=== PATIENT | female | born 1955 | race Caucasian/White ===

== ENCOUNTER 2020-05-26 09:01 | Outpatient (REF) | payer BC, SELFPAY ==
[2020-05-26 11:23] LABS: Hematocrit 40.4 % (37-47); Mean Corpuscular HGB Conc 32.2 g/dl (31.0-35.0); Mean Corpuscular Hemoglobin 30.9 pg (27.0-33.0); Mean Platelet Volume 12.1 fL (9.4-12.3); Platelet Count 152 X10*3/uL (160-400); Red Blood Count 4.21 X10*6/uL (4.20-5.50); Red Cell Distribution Width 12.5 % (11.0-16.0)
[2020-05-26 11:29] LABS: Glucose Urine UA NEG (NEG); Leukocyte Esterase Urine NEG (NEG); Nitrite Urine NEG (NEG); PH 5.5 (5.0-8.0); Specific Gravity - Urine >= 1.030 (1.005-1.025); Urine Blood 3+ (NEG); Urine Ketones NEG (NEG); Urine Protein TRACE MG/DL (NEG-TRACE)
[2020-05-26 11:33] LABS: Appearance Urine CLOUDY; Color Urine YELLOW
[2020-05-26 11:41] LABS: Alanine Aminotransferase 18 U/L (0-31); Alkaline Phosphatase 72 U/L (39-117); Anion Gap 12 (12-20); Aspartate Amino Transferase 21 U/L (5-31); Bilirubin Total 0.3 mg/dL (0.0-1.0); Blood Urea Nitrogen 16 mg/dL (9-16); Calcium 8.8 mg/dL (8.4-10.2); Carbon Dioxide 25 mmol/L (22-29); Chloride 107 mmol/L (96-108); Cholesterol 129 mg/dL; Estimated Glomerular Filt Rate > 60; Glucose Fasting 110 mg/dL (60-99); HDL Cholesterol 36 mg/dL; LDL Cholesterol Calculated 60 mg/dl; Sodium 140 mmol/L (135-145); Triglycerides 168 mg/dL
[2020-05-26 12:02] LABS: Thyroid Stimulating Hormone 2.62 uIU/mL (0.32-4.0)
[2020-05-26 12:03] LABS: Bacteria Urine 1+ /LPF; Squamous Epithelial Cell Urine 2+ /LPF; WBC Urine 0-2 /HPF (0-4)
[2020-05-26 12:12] LABS: Digoxin 0.4 ng/mL (0.8-2.0)
[2020-05-26 14:48] LABS: Amorphous Sediment Urine 3+ /LPF; Calcium Oxalate Crystals Urine 2+ /LPF
== END 2020-05-26 09:02 | disposition home or self-care (01) ==
LOC: HO.HMGCLDS 09:01
PROVIDERS: PCP Internal Medicine; Visit Provider Internal Medicine
DX: I50.9 Heart failure, unspecified (principal); F32.9 Major depressive disorder, single episode, unspecified; I21.9 Acute myocardial infarction, unspecified; J44.9 Chronic obstructive pulmonary disease, unspecified
CPT/HCPCS: 36415; 80053; 80061; 80162; 81001; 84443; 85027

== ENCOUNTER 2020-07-28 14:58 | Outpatient (REF) | payer BC, SELFPAY ==
[2020-07-28 16:33] LABS: Glucose Urine UA NEG (NEG); Leukocyte Esterase Urine NEG (NEG); Nitrite Urine NEG (NEG); Specific Gravity - Urine 1.015 (1.005-1.025); Urine Blood 2+ (NEG); Urine Ketones NEG (NEG); Urine Protein NEG (NEG-TRACE)
[2020-07-28 16:43] LABS: Appearance Urine CLEAR; Color Urine YELLOW
[2020-07-28 16:54] LABS: WBC Urine 0 /HPF (0-4)
== END 2020-07-28 14:59 | disposition home or self-care (01) ==
LOC: HO.HMGCLDS 14:58
PROVIDERS: PCP Internal Medicine; Visit Provider Internal Medicine
DX: R31.9 Hematuria, unspecified (principal)
CPT/HCPCS: 81001

== ENCOUNTER 2020-09-30 09:12 | Outpatient (REF) | payer BC, SELFPAY ==
[2020-09-30 12:10] LABS: Anion Gap 17 (12-20); Blood Urea Nitrogen 13 mg/dL (9-16); Calcium 8.6 mg/dL (8.4-10.2); Carbon Dioxide 20 mmol/L (22-29); Chloride 110 mmol/L (96-108); Cholesterol 129 mg/dL; Estimated Glomerular Filt Rate > 60; Glucose Fasting 113 mg/dL (60-99); HDL Cholesterol 41 mg/dL; LDL Cholesterol Calculated 59 mg/dl; Potassium 4.5 mmol/L (3.3-5.1); Sodium 142 mmol/L (135-145); Triglycerides 149 mg/dL
[2020-09-30 12:21] LABS: Digoxin < 0.3 ng/mL (0.8-2.0)
== END 2020-09-30 09:13 | disposition home or self-care (01) ==
LOC: HO.HMGCLDS 09:12
PROVIDERS: PCP Internal Medicine; Visit Provider Internal Medicine Cardiovascular Disease
DX: I25.10 Atherosclerotic heart disease of native coronary artery without angina pectoris (principal); I48.91 Unspecified atrial fibrillation
CPT/HCPCS: 36415; 80048; 80061; 80162

== ENCOUNTER 2022-02-18 09:07 | Outpatient (REF) | payer MEDICARE, OTHER, SELFPAY ==
[2022-02-18 11:35] LABS: Hematocrit 36.8 % (37.0-47.0); Hemoglobin 11.8 g/dl (12.0-16.0); Mean Corpuscular HGB Conc 32.1 g/dl (31.0-35.0); Mean Corpuscular Volume 93.6 fL (80.0-98.0); Mean Platelet Volume 11.9 fL (9.4-12.3); Platelet Count 157 X10*3/uL (160-400); Red Blood Count 3.93 X10*6/uL (4.20-5.50); Red Cell Distribution Width 13.6 % (11.0-16.0); White Blood Count 8.5 X10*3/uL (4.8-10.8)
[2022-02-18 11:37] LABS: Estimated Average Glucose 123 mg/dL; Hemoglobin A1C 135.1505 umol/L; Hemoglobin A1c % 5.9 %
[2022-02-18 11:46] LABS: Anion Gap 14 (12-20); Blood Urea Nitrogen 9 mg/dL (9-16); Calcium 9.1 mg/dL (8.4-10.2); Carbon Dioxide 24 mmol/L (22-29); Chloride 108 mmol/L (96-108); Estimated Glomerular Filt Rate > 60; Glucose Random 117 mg/dL (60-115); Potassium 4.3 mmol/L (3.3-5.1); Sodium 142 mmol/L (135-145)
[2022-02-18 11:53] LABS: Alanine Aminotransferase 13 U/L (0-31); Alkaline Phosphatase 86 U/L (39-117); Anion Gap 16 (12-20); Aspartate Amino Transferase 16 U/L (5-31); Bilirubin Total 0.2 mg/dL (0.0-1.0); Blood Urea Nitrogen 9 mg/dL (9-16); Calcium 9.2 mg/dL (8.4-10.2); Carbon Dioxide 22 mmol/L (22-29); Chloride 108 mmol/L (96-108); Cholesterol 104 mg/dL; Estimated Glomerular Filt Rate > 60; Glucose Fasting 119 mg/dL (60-99); HDL Cholesterol 34 mg/dL; LDL Cholesterol Calculated 50 mg/dl; Potassium 4.2 mmol/L (3.3-5.1); Sodium 142 mmol/L (135-145); Total Protein 7.2 g/dL (6.5-8.0); Triglycerides 101 mg/dL
[2022-02-18 12:49] LABS: Digoxin 0.9 ng/mL (0.8-2.0)
== END 2022-02-18 09:08 | disposition home or self-care (01) ==
LOC: HO.HMGCLDS 09:07
PROVIDERS: PCP Internal Medicine; Visit Provider Nurse Practitioner Acute Care
DX: E78.5 Hyperlipidemia, unspecified (principal); I25.5 Ischemic cardiomyopathy; R73.9 Hyperglycemia, unspecified; I48.0 Paroxysmal atrial fibrillation; Z79.899 Other long term (current) drug therapy
CPT/HCPCS: 36415; 80048; 80053; 80061; 80162; 83036; 85027

== ENCOUNTER 2022-03-10 10:21 | Outpatient (REF) | payer MEDICARE, OTHER, SELFPAY ==
[2022-03-10 14:33] LABS: Iron 55 mcg/dL (30-160); Percent Iron Saturation 16 % (15-50); Total Iron Binding Capacity 335 mcg/dL (228-428); Unsaturated Iron Binding 280 ug/dL
[2022-03-10 14:49] LABS: Vitamin D 25-OH Total 40.7 ng/mL (>30)
[2022-03-10 15:24] LABS: Folate 18.7 ng/mL (> or = 4.0); Vitamin B12 266 pg/mL (200-900)
== END 2022-03-10 10:22 | disposition home or self-care (01) ==
LOC: HO.HMGCLDS 10:21
PROVIDERS: PCP Internal Medicine; Visit Provider Internal Medicine
DX: D64.9 Anemia, unspecified (principal); E55.9 Vitamin D deficiency, unspecified
CPT/HCPCS: 36415; 82306; 82607; 82746; 83540

== ENCOUNTER 2022-06-23 11:24 | Outpatient (REF) | payer OTHER, MEDICARE, SELFPAY ==
--- NOTE | ~2022-06-23 | XR_ITS ---
EXAMINATION: XR CHEST CLINICAL INFORMATION: Shortness of breath COMPARISON: July 30, 2019 and November 13, 2018 TECHNIQUE: 2 views of the chest were obtained. FINDINGS: AICD in place. Status post median sternotomy. No acute parenchymal disease, pneumothorax, or significant pleural effusion identified. There is chronic pleural-parenchymal scarring seen within the left lung. There is bilateral apical pleural thickening. XR/XR chest 2V IMPRESSION: No acute disease.
[2022-06-23 15:09] LABS: Influenza A PCR NEGATIVE (Negative); Influenza B PCR NEGATIVE (Negative); Resp Syncy Virus RNA Qual PCR NEGATIVE (Negative); SARS COV2 PCR INHOUSE NEGATIVE (Negative)
== END 2022-06-23 11:25 | disposition home or self-care (01) ==
LOC: HO.HMGCX 11:24
PROVIDERS: PCP Internal Medicine; Visit Provider Nurse Practitioner Family
DX: Z20.822 Contact with and (suspected) exposure to COVID-19 (principal); R06.02 Shortness of breath; R09.89 Other specified symptoms and signs involving the circulatory and respiratory systems
CPT/HCPCS: 0241U; 71046

== ENCOUNTER 2022-10-12 08:37 | Outpatient (REF) | payer OTHER, MEDICARE, SELFPAY ==
[2022-10-12 12:18] LABS: Cholesterol 125 mg/dL; HDL Cholesterol 37 mg/dL; LDL Cholesterol Calculated 55 mg/dl; Triglycerides 167 mg/dL
== END 2022-10-12 08:38 | disposition home or self-care (01) ==
LOC: HO.HMGCLDS 08:37
PROVIDERS: PCP Internal Medicine; Visit Provider Nurse Practitioner Acute Care
DX: I25.10 Atherosclerotic heart disease of native coronary artery without angina pectoris (principal)
CPT/HCPCS: 36415; 80061

== ENCOUNTER 2023-03-15 10:14 | Outpatient (AMB) | payer MEDICARE, SELFPAY ==
[2023-03-15 10:24] VITALS: BP 90/56; PULSE 69; O2SAT 96; BMI 24.3
--- NOTE | 2023-03-15 10:24 | MHC.PC.OV ---
Vital Signs 03/15/23 10:24 Height 5 ft 5 in Weight 146 lb BMI 24.3 BP 90/56 L Blood Pressure Location Lt brachial Position Sitting Pulse 69 Pulse Source Pulse Oximeter Pulse Oximetry (%) 96 Oxygen Delivery Method Room Air Intake Visit Reasons: Annual PE Intake Note: Pt is here today for PE. Allergies heparin [HEPARIN] Allergy (Unknown, Verified 03/15/23 10:43) UNKNOWN REACTION(WAS AFTER CABG SURGERY) Penicillins [PENICILLINS] Allergy (Unknown, Verified 03/15/23 10:43) REACTION UNKNOWN Medication List - Last Reconciled 03/15/23 by Annika Peter MD apixaban 5 mg PO BID carvedilol 25 mg PO BID citalopram 30 mg (1.5 x 20 mg) PO QAM digoxin 250 mcg PO BEDTIME flu vac qs 2019(4 yr up)CD(PF) mL IM furosemide 10 mg PO DAILY rosuvastatin 40 mg PO DAILY sacubitril-valsartan 49-51 mg 1 tab PO BID triamcinolone acetonide 0.1% 1 appl topical DAILY Tobacco use date assessed: 03/15/23 Fall risk assessment: No Falls in past year Last assessed Fall Risk: 03/15/23 Dental Screening Dental Screen Date: 03/15/23 Did you have a dental visit in the last 12 months?: No Did you have a dental problem in the last 6 months where you did not have access to dental care?: Yes Was dental information given to patient?: Yes HPI Annual PE HPI Details Pt presents for PE. PFSH Medical History (Updated 03/15/23 @ 11:13 by Annika Peter MD) Hyperglycemia Dysplastic nevus Hyperlipidemia Hematuria A-fib Colon cancer screening declined Papanicolaou smear declined Mammogram declined COPD (chronic obstructive pulmonary disease) Ischemic cardiomyopathy Depression Pacemaker Myocardial infarct Surgical History S/P ICD (internal cardiac defibrillator) procedure Hx of CABG Family History Father History of heart attack Mother No problems noted. Maternal Grandmother Colon cancer Social History Housing: House Alcohol intake: never Patient Tobacco Use Status: Current everyday Tobacco user Tobacco use type: Cigarette Cigarettes Per Day: 10 e-Cigarette/Vaping Use: Never Used Current occupational status: employed Cognitive needs: No Hearing needs: No Vision needs: Yes Questionnaire PHQ-9 Over the last 2 weeks, how often have you been bothered by any of the following problems? 1. Little interest or pleasure in doing things: more than half the days 19662 - PHQ-9 Billing: Patient declined-do not bill Source: Developed by Drs. Yazan Ascencio, Williams Austin and colleagues, with an educational dion from [employer]. Thrive Questionnaire Date Thrive assessed: 03/15/23 What is your living situation today?: I choose not to answer this question Within the past 12 months, did the food you bought not last and you didn't have the money to get more?: I choose not to answer this question Within the past 12 months, did you worry whether your food would run out before you got money to buy more?: I choose not to answer this question Do you have trouble paying for medicines?: I choose not to answer this question Do you have trouble getting transportation to medical appointments?: I choose not to answer this question Do you have trouble paying your heating and electricity bill?: I choose not to answer this question Do you have trouble taking care of your child, family member or friend?: I choose not to answer this question Do you have trouble with day-to-day activities such as bathing, preparing meals, shopping, managing finances, etc.?: I choose not to answer this question Are you currently unemployed and looking for a job?: I choose not to answer this question Are you interested in more education?: I choose not to answer this question KARLY-7 AMB Questionnaire KARLY-7 Date KARLY - 7 assessed: 03/15/23 Source: Developed by Drs. Yazan Ascencio, Williams Austin and colleagues, with an educational dion from [employer]. KARLY-7 Assessment Billing KARLY-7 Assessment Tool: pt declined-do not bill Review of Systems Const All systems reviewed & are unremarkable except as noted in HPI and below Reports no additional complaints Eyes Reports no additional complaints ENT Reports no additional complaints Card Reports no additional complaints Resp Reports no additional complaints GI Reports no additional complaints Reports no additional complaints Physical exam (Primary Care) Vital Signs: Last Vital Signs Pulse 69 03/15/23 10:24 BP 90/56 L 03/15/23 10:24 Pulse Ox 96 03/15/23 10:24 Oxygen Delivery Method Room Air 03/15/23 10:24 BMI result Body Mass Index 24.3 Tobacco/Smoking Status: Tobacco use Status Tobacco use date assessed 03/15/23 03/15/23 10:49 Patient Tobacco Use Status Current everyday Tobacco 03/15/23 10:24 Tobacco use type Cigarette 03/15/23 10:24 e-Cigarette/Vaping Use Never Used 03/15/23 10:24 Thrive Assessment: Date of Thrive Assessment Date Thrive assessed 03/15/23 03/15/23 10:49 Const General: no acute distress HENMT Head: Yes normal to inspection Ears: hearing grossly normal bilaterally Face and sinus: Yes normal facial exam Throat: Yes posterior oropharynx normal Neck Neck: Yes no lymphadenopathy and Yes supple Resp Effort & Inspection: normal respiratory effort Auscultation: diminished lung sounds Cardio Rhythm: regular rhythm Heart sounds: S1 normal heart sound present and S2 normal heart sound present GI Inspection: Yes normal to inspection Palpation (GI): Soft to palpation Percussion: Yes normal to percussion Auscultation: normal bowel sounds Assessment and Plan Assessment & Plan (1) Vitamin D deficiency: Code(s): E55.9 - Vitamin D deficiency, unspecified Plan: Continue vitamin-D supplement (2) Anemia: Code(s): D64.9 - Anemia, unspecified (3) Hyperglycemia: Code(s): R73.9 - Hyperglycemia, unspecified Plan: Patient have a fasting labs including A1c, ADA diet regular physical activity discussed with the patient (4) Ischemic cardiomyopathy: Comment: s/p CABG, ejection fraction 20-25%, Echo 03/25, f/u with [facility]iology , s/p ICD, Code(s): I25.5 - Ischemic cardiomyopathy Plan: Continue current medications and follow-up with Cardiology (5) Hyperlipidemia: Code(s): E78.5 - Hyperlipidemia, unspecified Plan: Continue statin (6) A-fib: Code(s): I48.91 - Unspecified atrial fibrillation Plan: Continue current medication Eliquis (7) Tobacco dependence: Comment: 1/2 ppd, pt delined lung ca screening 03/26 Code(s): F17.200 - Nicotine dependence, unspecified, uncomplicated Plan: Tobacco quitting discussed with the patient (8) Papanicolaou smear declined: Code(s): Z53.20 - Procedure and treatment not carried out because of patient's decision for unspecified reasons (9) Mammogram declined: Comment: 2022 Code(s): Z53.20 - Procedure and treatment not carried out because of patient's decision for unspecified reasons Orders: Orders Complete Blood Count Auto Diff Today D64.9 - Anemia, unspecified, E55.9 - Vitamin D deficiency, unspecified, E78.5 - Hyperlipidemia, unspecified, I25.5 - Ischemic cardiomyopathy, I48.91 - Unspecified atrial fibrillation, R73.9 - Hyperglycemia, unspecified Digoxin Today D64.9 - Anemia, unspecified, E55.9 - Vitamin D deficiency, unspecified, E78.5 - Hyperlipidemia, unspecified, I25.5 - Ischemic cardiomyopathy, I48.91 - Unspecified atrial fibrillation, R73.9 - Hyperglycemia, unspecified Comprehensive [place]. Panel Fast Today D64.9 - Anemia, unspecified, E55.9 - Vitamin D deficiency, unspecified, E78.5 - Hyperlipidemia, unspecified, I25.5 - Ischemic cardiomyopathy, I48.91 - Unspecified atrial fibrillation, R73.9 - Hyperglycemia, unspecified Lipid Panel Today D64.9 - Anemia, unspecified, E55.9 - Vitamin D deficiency, unspecified, E78.5 - Hyperlipidemia, unspecified, I25.5 - Ischemic cardiomyopathy, I48.91 - Unspecified atrial fibrillation, R73.9 - Hyperglycemia, unspecified Hemoglobin A1c Today D64.9 - Anemia, unspecified, E55.9 - Vitamin D deficiency, unspecified, E78.5 - Hyperlipidemia, unspecified, I25.5 - Ischemic cardiomyopathy, I48.91 - Unspecified atrial fibrillation, R73.9 - Hyperglycemia, unspecified TSH reflex Free T4 Today D64.9 - Anemia, unspecified, E55.9 - Vitamin D deficiency, unspecified, E78.5 - Hyperlipidemia, unspecified, I25.5 - Ischemic cardiomyopathy, I48.91 - Unspecified atrial fibrillation, R73.9 - Hyperglycemia, unspecified Microalbumin, Random (w Creat) Today D64.9 - Anemia, unspecified, E55.9 - Vitamin D deficiency, unspecified, E78.5 - Hyperlipidemia, unspecified, I25.5 - Ischemic cardiomyopathy, I48.91 - Unspecified atrial fibrillation, R73.9 - Hyperglycemia, unspecified Vitamin D 25-OH Total Today D64.9 - Anemia, unspecified, E55.9 - Vitamin D deficiency, unspecified, E78.5 - Hyperlipidemia, unspecified, I25.5 - Ischemic cardiomyopathy, I48.91 - Unspecified atrial fibrillation, R73.9 - Hyperglycemia, unspecified Medications: Refilled triamcinolone acetonide 0.1% 1 appl topical DAILY 30 grams 0RF Coding Level of Care Code Est Pt Prev Care >65y(00690) Diagnoses Vitamin D deficiency E55.9 Anemia D64.9 Hyperglycemia R73.9 Ischemic cardiomyopathy I25.5 Hyperlipidemia E78.5 A-fib I48.91 Tobacco dependence F17.200 Papanicolaou smear declined Z53.20 Mammogram declined Z53.20
== END 2023-03-15 11:10 | disposition home or self-care (01) ==
PROVIDERS: Visit Provider Internal Medicine
DX: Z00.00 Encounter for general adult medical examination without abnormal findings (principal); E55.9 Vitamin D deficiency, unspecified; I48.91 Unspecified atrial fibrillation; F17.210 Nicotine dependence, cigarettes, uncomplicated; D64.9 Anemia, unspecified; R73.9 Hyperglycemia, unspecified; I25.5 Ischemic cardiomyopathy; E78.5 Hyperlipidemia, unspecified; Z53.20 Procedure and treatment not carried out because of patient's decision for unspecified reasons
CPT/HCPCS: 99397

== ENCOUNTER 2023-04-08 14:14 | Outpatient (REF) | payer MEDICARE, SELFPAY ==
[2023-04-08 16:37] LABS: Digoxin 0.9 ng/mL (0.8-2.0)
== END 2023-04-08 14:15 | disposition home or self-care (01) ==
LOC: HO.HMGCLDS 14:14
PROVIDERS: PCP Internal Medicine; Visit Provider Internal Medicine
DX: Z00.00 Encounter for general adult medical examination without abnormal findings (principal); E55.9 Vitamin D deficiency, unspecified; I25.5 Ischemic cardiomyopathy; E78.5 Hyperlipidemia, unspecified; D64.9 Anemia, unspecified; R73.9 Hyperglycemia, unspecified; I48.91 Unspecified atrial fibrillation; Z79.899 Other long term (current) drug therapy
CPT/HCPCS: 36415; 80053; 80061; 80162; 82043; 82306; 82570; 83036; 83540; 84443; 85025

== ENCOUNTER 2023-04-22 08:24 | Outpatient (AMB) | payer MEDICARE, SELFPAY ==
--- NOTE | 2023-04-22 08:28 | A.OFFPC_ITS ---
Vital Signs 04/22/23 08:29 Height 5 ft 5 in Weight 145 lb BMI 24.1 BP 104/62 Blood Pressure Location Lt brachial Position Sitting Pulse 82 Pulse Source Pulse Oximeter Pulse Oximetry (%) 95 Oxygen Delivery Method Room Air Intake Visit Reasons: Hospital follow up [facility] Intake Note: Pt is here today for Hospital follow up visit. Pt states that she needs a repeat blood test for CBC TSH and BMP. Allergies heparin [HEPARIN] Allergy (Unknown, Verified 04/22/23 08:32) UNKNOWN REACTION(WAS AFTER CABG SURGERY) Penicillins [PENICILLINS] Allergy (Unknown, Verified 04/22/23 08:32) REACTION UNKNOWN Medication List - Last Reconciled 04/22/23 by Annika Peter MD albuterol sulfate 90 mcg/actuation 2 puffs inhalation Q6H PRN apixaban 5 mg PO BID carvedilol 3.125 mg PO BID citalopram 30 mg (1.5 x 20 mg) PO QAM digoxin 250 mcg PO BEDTIME flu vac qs 2019(4 yr up)CD(PF) mL IM fluticasone propionate 44 mcg/actuation (Flovent HFA) 2 puffs inhalation BID furosemide 10 mg PO DAILY rosuvastatin 40 mg PO DAILY sacubitril-valsartan 24-26 mg (Entresto) 1 tab PO BID tiotropium bromide 1.25 mcg/actuation (Spiriva Respimat) 2 puffs inhalation DAILY triamcinolone acetonide 0.1% 1 appl topical DAILY Tobacco use date assessed: 04/22/23 HPI Hospital follow up [facility] HPI Details Pt presents for f/u hospitalization at [facility] for COPD and CHF EXACERBATION. Patient complains of persistent productive cough with green sputum, sinus and chest congestion but denies fever chills shortness of breath. [facility] Medical History Hyperglycemia Dysplastic nevus Hyperlipidemia Hematuria A-fib Colon cancer screening declined Papanicolaou smear declined Mammogram declined COPD (chronic obstructive pulmonary disease) Ischemic cardiomyopathy Depression Pacemaker Myocardial infarct Surgical History S/P ICD (internal cardiac defibrillator) procedure Hx of CABG Family History Father History of heart attack Mother No problems noted. Maternal Grandmother Colon cancer Social History Housing: House Alcohol intake: never Patient Tobacco Use Status: Current everyday Tobacco user Tobacco use type: Cigarette Cigarettes Per Day: 4 e-Cigarette/Vaping Use: Never Used Current occupational status: employed Cognitive needs: No Hearing needs: No Vision needs: Yes Questionnaire Thrive Questionnaire Date Thrive assessed: 03/15/23 KARLY-7 AMB Questionnaire KARLY-7 Date KARLY - 7 assessed: 03/15/23 Source: Developed by Drs. Yazan Ascencio, Kim Mcguire, Williams Alatorre and colleagues, with an educational dion from [email or web address]. Review of Systems Const All systems reviewed & are unremarkable except as noted in HPI and below Reports no additional complaints Eyes Reports no additional complaints ENT Reports no additional complaints Card Reports no additional complaints Resp Reports no additional complaints GI Reports no additional complaints Physical exam (Primary Care) Vital Signs: Last Vital Signs Pulse 82 04/22/23 08:29 BP 104/62 04/22/23 08:29 Pulse Ox 95 04/22/23 08:29 Oxygen Delivery Method Room Air 04/22/23 08:29 BMI result Body Mass Index 24.1 Tobacco/Smoking Status: Tobacco use Status Tobacco use date assessed 04/22/23 04/22/23 08:37 Patient Tobacco Use Status Current everyday Tobacco 04/22/23 08:30 Tobacco use type Cigarette 04/22/23 08:30 e-Cigarette/Vaping Use Never Used 04/22/23 08:30 Thrive Assessment: Date of Thrive Assessment Date Thrive assessed 03/15/23 04/22/23 08:30 Const General: no acute distress HENMT Head: Yes normal to inspection Ears: TM's normal bilaterally Face and sinus: Yes sinus tenderness Throat: Yes posterior oropharynx abnormal and Yes postnasal drainage Eyes General: appearance normal, both eyes and all related structures Neck Neck: Yes no lymphadenopathy and Yes supple Resp Effort & Inspection: normal respiratory effort Auscultation: crackles, wheezes and diminished lung sounds Cardio Rhythm: regular rhythm Heart sounds: S1 normal heart sound present and S2 normal heart sound present GI Inspection: Yes normal to inspection Palpation (GI): Soft to palpation Percussion: Yes normal to percussion Auscultation: normal bowel sounds Office Procedures Nebulizer Treatment Nebulizer Treatment [id number]/MDI RX initial, or Nebulizer Subsequent Treatment Office Meds ipratropium 0.5 mg-albuterol 3 mg (2.5 mg base)/3 mL nebulization soln Performing Provider: Annika Peter MD Performing Location: [facility] Administered by: Ghada Shields RN on 04/22/23 09:00 Dose Route Admin Location Dispensed Lot Number Expiration Date NDC [employer] 3 mL inhalation Rm 3 3 mL [id number] 08/17/23 3716-8925-35 [employer]PHRON HUSSAIN Comments: Pt familiar with use of device. Assessment and Plan Assessment & Plan (1) Ischemic cardiomyopathy: Comment: s/p CABG, ejection fraction 20-25%, Echo 03/25, f/u with [facility] Cardiology , s/p ICD, Code(s): I25.5 - Ischemic cardiomyopathy Plan: Restart regular medications and previous doses including Entresto and carved ilol. Patient has a follow-up appointment with technology officer next week (2) COPD (chronic obstructive pulmonary disease): Comment: severe PFT 2018 Code(s): J44.9 - Chronic obstructive pulmonary disease, unspecified Plan: For COPD exacerbation prednisone taper and doxycycline are prescribed. Trelegy will be started and albuterol nebulizer treatment. Patient will follow-up in 2 weeks Orders: Orders AMB Nebulizer Treatment Today R06.02 - Shortness of breath Medications: New doxycycline hyclate 100 mg PO BID 20 tabs 0RF prednisone 4 tabl qd x 3 days, then 3 tabl qd x 3 days, then 2 tab qd x 3 days, then 1 qd for 3 days 10 mg PO DAILY 30 tabs 0RF sacubitril-valsartan 49-51 mg 1 tab PO BID 180 tabs 0RF nebulizers (AeroEclipse II Nebulizer) As directed 1 ea 0RF albuterol sulfate 0.63 mg (3 mL) inhalation QID PRN 90 mL 3RF shortness of breath or wheezing tyvahejrhtm-wfolcrufm-qjvqaugv 100-62.5-25 mcg (Trelegy Ellipta) 1 inh inhalation DAILY 60 ea 4RF carvedilol must administer with a meal/food 25 mg PO BID 180 tabs 1RF Coding Level of Care Code Est Pt Level 4 (94566) Diagnoses Ischemic cardiomyopathy I25.5 COPD (chronic obstructive pulmonary disease) J44.9 CPT Codes Nebulizer Treatment - Nebulizer Treatment, initial or subsequent: 68146- Nebulizer/MDI RX initial, or Nebulizer Subsequent Treatment ([id number])
[2023-04-22 08:29] VITALS: BP 104/62; PULSE 82; O2SAT 95; BMI 24.1
== END 2023-04-22 09:45 | disposition home or self-care (01) ==
PROVIDERS: PCP Internal Medicine; Visit Provider Internal Medicine
DX: I25.5 Ischemic cardiomyopathy (principal); J44.9 Chronic obstructive pulmonary disease, unspecified; I50.9 Heart failure, unspecified; R06.02 Shortness of breath
CPT/HCPCS: 94640; 99214; J7620

== ENCOUNTER 2023-05-06 09:58 | Outpatient (AMB) | payer MEDICARE, SELFPAY ==
--- NOTE | 2023-05-06 10:09 | A.OFFPC_ITS ---
Vital Signs 05/06/23 10:11 Height 5 ft 5 in Weight 149 lb BMI 24.8 BP 90/58 L Blood Pressure Location Lt brachial Position Sitting Pulse 78 Pulse Source Pulse Oximeter Pulse Oximetry (%) 98 Oxygen Delivery Method Room Air Intake Visit Reasons: 2 week f/u COPD Intake Note: Pt is here today for 2 weeks follow up on COPD. Allergies heparin [HEPARIN] Allergy (Unknown, Verified 05/06/23 10:13) UNKNOWN REACTION(WAS AFTER CABG SURGERY) Penicillins [PENICILLINS] Allergy (Unknown, Verified 05/06/23 10:13) REACTION UNKNOWN Medication List - Last Reconciled 05/06/23 by Annika Peter MD albuterol sulfate 90 mcg/actuation 2 puffs inhalation Q6H PRN albuterol sulfate 0.63 mg (3 mL) inhalation QID PRN apixaban 5 mg PO BID carvedilol 25 mg PO BID citalopram 30 mg (1.5 x 20 mg) PO QAM digoxin 250 mcg PO BEDTIME flu vac qs 2019(4 yr up)CD(PF) mL IM zgeamdypmnl-ofrzijxhq-bvweypxf 100-62.5-25 mcg (Trelegy Ellipta) 1 inh inhalation DAILY furosemide 10 mg PO DAILY nebulizers (AeroEclipse II Nebulizer) As directed rosuvastatin 40 mg PO DAILY sacubitril-valsartan 49-51 mg 1 tab PO BID triamcinolone acetonide 0.1% 1 appl topical DAILY Tobacco use date assessed: 04/22/23 HPI 2 week f/u COPD HPI Details Patient presents complaining of the metallic taste in her mouth after finishing the course of doxycycline. Patient denies odynophagia dysphagia fever chills cough or chest pains. PFSH Medical History Hyperglycemia Dysplastic nevus Hyperlipidemia Hematuria A-fib Colon cancer screening declined Papanicolaou smear declined Mammogram declined COPD (chronic obstructive pulmonary disease) Ischemic cardiomyopathy Depression Pacemaker Myocardial infarct Surgical History S/P ICD (internal cardiac defibrillator) procedure Hx of CABG Family History Father History of heart attack Mother No problems noted. Maternal Grandmother Colon cancer Social History Housing: House Alcohol intake: never Patient Tobacco Use Status: Current everyday Tobacco user Tobacco use type: Cigarette Cigarettes Per Day: 4 e-Cigarette/Vaping Use: Never Used Current occupational status: employed Cognitive needs: No Hearing needs: No Vision needs: Yes Questionnaire Thrive Questionnaire Date Thrive assessed: 03/15/23 KARLY-7 AMB Questionnaire KARLY-7 Date KARLY - 7 assessed: 03/15/23 Source: Developed by Drs. Yazan Ascencio, Kim Mcguire, Williams Alatorre and colleagues, with an educational dion from [employer]. Review of Systems Const All systems reviewed & are unremarkable except as noted in HPI and below Reports no additional complaints Eyes Reports no additional complaints ENT Reports no additional complaints Card Reports no additional complaints Resp Reports no additional complaints GI Reports no additional complaints Reports no additional complaints Physical exam (Primary Care) Vital Signs: Last Vital Signs Pulse 78 05/06/23 10:11 BP 90/58 L 05/06/23 10:11 Pulse Ox 98 05/06/23 10:11 Oxygen Delivery Method Room Air 05/06/23 10:11 BMI result Body Mass Index 24.8 Tobacco/Smoking Status: Tobacco use Status Tobacco use date assessed 04/22/23 05/06/23 10:15 Patient Tobacco Use Status Current everyday Tobacco 05/06/23 10:15 Tobacco use type Cigarette 05/06/23 10:15 e-Cigarette/Vaping Use Never Used 05/06/23 10:15 Thrive Assessment: Date of Thrive Assessment Date Thrive assessed 03/15/23 05/06/23 10:15 Const General: no acute distress HENMT Head: Yes normal to inspection Ears: hearing grossly normal bilaterally Face and sinus: Yes normal facial exam Mouth: Normal oral and palatal mucosa present Throat: Yes posterior oropharynx normal Eyes General: appearance normal, both eyes and all related structures Resp Effort & Inspection: normal respiratory effort Auscultation: diminished lung sounds Cardio Rhythm: regular rhythm Heart sounds: S1 normal heart sound present and S2 normal heart sound present Assessment and Plan Assessment & Plan (1) Hyperglycemia: Code(s): R73.9 - Hyperglycemia, unspecified Plan: ADA diet increase physical activity discussed with the patient. Return in 3 months with a fasting blood work including A1c (2) Ischemic cardiomyopathy: Comment: s/p CABG, ejection fraction 20-25%, Echo 03/25, f/u with [facility] Cardiology , s/p ICD, Code(s): I25.5 - Ischemic cardiomyopathy Plan: Continue current medications and follow-up with Cardiology (3) COPD (chronic obstructive pulmonary disease): Comment: severe PFT 2018 Code(s): J44.9 - Chronic obstructive pulmonary disease, unspecified Plan: Continue Trelegy and tobacco quitting Orders: Orders Hemoglobin A1c 3 Months I25.5 - Ischemic cardiomyopathy, R73.9 - Hyperglycemia, unspecified Comprehensive [place]. Panel Fast 3 Months I25.5 - Ischemic cardiomyopathy, R73.9 - Hyperglycemia, unspecified Lipid Panel 3 Months I25.5 - Ischemic cardiomyopathy, R73.9 - Hyperglycemia, unspecified Microalbumin, Random (w Creat) 3 Months I25.5 - Ischemic cardiomyopathy, R73.9 - Hyperglycemia, unspecified Coding Level of Care Code Est Pt Level 3 (59243) Diagnoses Hyperglycemia R73.9 Ischemic cardiomyopathy I25.5 COPD (chronic obstructive pulmonary disease) J44.9
[2023-05-06 10:11] VITALS: BP 90/58; PULSE 78; O2SAT 98; BMI 24.8
== END 2023-05-06 10:44 | disposition home or self-care (01) ==
PROVIDERS: PCP Internal Medicine; Visit Provider Internal Medicine
DX: R73.9 Hyperglycemia, unspecified (principal); I25.5 Ischemic cardiomyopathy; J44.9 Chronic obstructive pulmonary disease, unspecified
CPT/HCPCS: 99213

== ENCOUNTER 2023-08-18 11:13 | Outpatient (AMB) | payer MEDICARE, SELFPAY ==
--- NOTE | 2023-08-18 11:16 | MHC.PC.OV ---
Vital Signs 08/18/23 11:17 Height 5 ft 5 in Weight 148 lb BMI 24.6 BP 118/66 Blood Pressure Location Lt brachial Position Sitting Pulse 81 Pulse Source Pulse Oximeter Pulse Oximetry (%) 96 Oxygen Delivery Method Room Air Intake Visit Reasons: 3 month follow up Intake Note: Pt is here today for 3 months follow up visit. Allergies heparin [HEPARIN] Allergy (Unknown, Verified 08/18/23 11:18) UNKNOWN REACTION(WAS AFTER CABG SURGERY) Penicillins [PENICILLINS] Allergy (Unknown, Verified 08/18/23 11:18) REACTION UNKNOWN Medication List - Last Reconciled 08/18/23 by Annika Peter MD albuterol sulfate 90 mcg/actuation 2 puffs inhalation Q6H PRN albuterol sulfate 0.63 mg (3 mL) inhalation QID PRN apixaban 5 mg PO BID carvedilol 25 mg PO BID citalopram 30 mg (1.5 x 20 mg) PO QAM digoxin 250 mcg PO BEDTIME flu vac qs 2019(4 yr up)CD(PF) mL IM ukvtnfslgit-ajvuguwmw-fhtdamqc 100-62.5-25 mcg (Trelegy Ellipta) 1 inh inhalation DAILY furosemide 10 mg PO DAILY nebulizers (AeroEclipse II Nebulizer) As directed rosuvastatin 40 mg PO DAILY sacubitril-valsartan 49-51 mg 1 tab PO BID triamcinolone acetonide 0.1% 1 appl topical DAILY Tobacco use date assessed: 08/18/23 Fall risk assessment: No Falls in past year Last assessed Fall Risk: 08/18/23 Dental Screening Dental Screen Date: 08/18/23 Did you have a dental visit in the last 12 months?: Yes Did you have a dental problem in the last 6 months where you did not have access to dental care?: No Was dental information given to patient?: Patient has dentist HPI 3 month follow up HPI Details Patient presents for the follow-up of ischemic cardiomyopathy, paroxysmal AFib, COPD, hyperlipidemia, stable on medications. She follows up with [facility] for periodic echocardiogram and ICD check. Patient continues to smoke 8 cigarettes a day and is not planning on quitting. [facility] Medical History Hyperglycemia Dysplastic nevus Hyperlipidemia Hematuria A-fib Colon cancer screening declined Papanicolaou smear declined Mammogram declined COPD (chronic obstructive pulmonary disease) Ischemic cardiomyopathy Depression Pacemaker Myocardial infarct Surgical History S/P ICD (internal cardiac defibrillator) procedure Hx of CABG Family History Father History of heart attack Mother No problems noted. Maternal Grandmother Colon cancer Social History Housing: House Alcohol intake: never Patient Tobacco Use Status: Current everyday Tobacco user Tobacco use type: Cigarette Cigarettes Per Day: 4 e-Cigarette/Vaping Use: Never Used Current occupational status: employed Cognitive needs: No Hearing needs: No Vision needs: Yes Questionnaire Thrive Questionnaire Date Thrive assessed: 03/15/23 AUDIT C Alcohol Use Questionnaire (AUDIT-C) 1. How often do you have a drink containing alcohol?: Never 3. How often do you have six or more drinks on one occasion?: Never Total Score: 0 KARLY-7 AMB Questionnaire KARLY-7 Date KARLY - 7 assessed: 03/15/23 Source: Developed by Drs. Yazan Ascencio, Kim Mcguire, Williams Alatorre and colleagues, with an educational dion from [employer]. Review of Systems Const All systems reviewed & are unremarkable except as noted in HPI and below Reports no additional complaints Eyes Reports no additional complaints ENT Reports no additional complaints Card Reports no additional complaints Resp Reports no additional complaints GI Reports no additional complaints Physical exam (Primary Care) Vital Signs: Last Vital Signs Pulse 81 08/18/23 11:17 BP 118/66 08/18/23 11:17 Pulse Ox 96 08/18/23 11:17 Oxygen Delivery Method Room Air 08/18/23 11:17 BMI result Body Mass Index 24.6 Tobacco/Smoking Status: Tobacco use Status Tobacco use date assessed 08/18/23 08/18/23 11:20 Patient Tobacco Use Status Current everyday Tobacco 08/18/23 11:20 Tobacco use type Cigarette 08/18/23 11:20 e-Cigarette/Vaping Use Never Used 08/18/23 11:20 Thrive Assessment: Date of Thrive Assessment Date Thrive assessed 03/15/23 08/18/23 11:20 Const General: no acute distress HENMT Head: Yes normal to inspection Neck Neck: Yes no lymphadenopathy and Yes supple Resp Effort & Inspection: normal respiratory effort Auscultation: crackles bilateral Cardio Rhythm: regular rhythm Heart sounds: S1 normal heart sound present and S2 normal heart sound present GI Inspection: Yes normal to inspection Palpation (GI): Soft to palpation Percussion: Yes normal to percussion Auscultation: normal bowel sounds Extrem Other: 1+ pitting edema bilaterally Assessment and Plan Assessment & Plan (1) Ischemic cardiomyopathy: Comment: s/p CABG, ejection fraction 20-25%, Echo 03/25, f/u with [facility] , s/p ICD, , patient refused to take SGLT 2 inhibitor Code(s): I25.5 - Ischemic cardiomyopathy Plan: Continue current medications and follow-up with Cardiology (2) Hyperglycemia: Code(s): R73.9 - Hyperglycemia, unspecified Plan: ADA diet increase physical activity discussed with the patient check A1c today and in 3 months (3) Hyperlipidemia: Code(s): E78.5 - Hyperlipidemia, unspecified Plan: Continue statin (4) COPD (chronic obstructive pulmonary disease): Comment: severe PFT 2018, patient declined to use Trelegy Code(s): J44.9 - Chronic obstructive pulmonary disease, unspecified Plan: Continue Spiriva and albuterol as needed, tobacco quitting discussed (5) A-fib: Code(s): I48.91 - Unspecified atrial fibrillation Plan: Rate controlled on digoxin and anticoagulated on Eliquis. Orders: Orders Comprehensive [place]. Panel Fast 3 Months E78.5 - Hyperlipidemia, unspecified, I25.5 - Ischemic cardiomyopathy, I48.91 - Unspecified atrial fibrillation, J44.9 - Chronic obstructive pulmonary disease, unspecified, R73.9 - Hyperglycemia, unspecified Hemoglobin A1c 3 Months E78.5 - Hyperlipidemia, unspecified, I25.5 - Ischemic cardiomyopathy, I48.91 - Unspecified atrial fibrillation, J44.9 - Chronic obstructive pulmonary disease, unspecified, R73.9 - Hyperglycemia, unspecified Complete Blood Count Auto Diff 3 Months E78.5 - Hyperlipidemia, unspecified, I25.5 - Ischemic cardiomyopathy, I48.91 - Unspecified atrial fibrillation, J44.9 - Chronic obstructive pulmonary disease, unspecified, R73.9 - Hyperglycemia, unspecified Lipid Panel 3 Months E78.5 - Hyperlipidemia, unspecified, I25.5 - Ischemic cardiomyopathy, I48.91 - Unspecified atrial fibrillation, J44.9 - Chronic obstructive pulmonary disease, unspecified, R73.9 - Hyperglycemia, unspecified Microalbumin, Random (w Creat) 3 Months E78.5 - Hyperlipidemia, unspecified, I25.5 - Ischemic cardiomyopathy, I48.91 - Unspecified atrial fibrillation, J44.9 - Chronic obstructive pulmonary disease, unspecified, R73.9 - Hyperglycemia, unspecified Digoxin Today E78.5 - Hyperlipidemia, unspecified, I25.5 - Ischemic cardiomyopathy, I48.91 - Unspecified atrial fibrillation, J44.9 - Chronic obstructive pulmonary disease, unspecified, R73.9 - Hyperglycemia, unspecified Medications: New tiotropium bromide 2.5 mcg/actuation (Spiriva Respimat) 2 inhalations inhalation QAM 4 grams 5RF Discontinued thdkboihvxp-zkwmqztgw-lgkcephe 100-62.5-25 mcg (Trelegy Ellipta) Discontinued Reason: Doctor's Order 1 inh inhalation DAILY 60 ea 4RF Coding Level of Care Code Est Pt Level 4 (54959) Diagnoses Ischemic cardiomyopathy I25.5 Hyperglycemia R73.9 Hyperlipidemia E78.5 COPD (chronic obstructive pulmonary disease) J44.9 A-fib I48.91
[2023-08-18 11:17] VITALS: BP 118/66; PULSE 81; O2SAT 96; BMI 24.6
== END 2023-08-18 12:03 | disposition home or self-care (01) ==
PROVIDERS: PCP Internal Medicine; Visit Provider Internal Medicine
DX: J44.9 Chronic obstructive pulmonary disease, unspecified (principal); I48.91 Unspecified atrial fibrillation; I25.5 Ischemic cardiomyopathy; R73.9 Hyperglycemia, unspecified; E78.5 Hyperlipidemia, unspecified
CPT/HCPCS: 99214

== ENCOUNTER 2023-10-25 11:01 | Outpatient (AMB) | payer MEDICARE, SELFPAY ==
[2023-10-25 11:08] VITALS: BP 118/76; PULSE 63; TEMP 36.2; O2SAT 97; BMI 23.8
--- NOTE | 2023-10-25 11:08 | AM.OFFWIN_ITS ---
Intake Vital Signs 10/25/23 11:08 Height 5 ft 5 in Weight 143 lb BMI 23.8 BP 118/76 Blood Pressure Location Lt brachial Position Sitting Pulse 63 Pulse Source Pulse Oximeter Temp 97.1 F Temp Source Temporal Artery Scan Pulse Oximetry (%) 97 Oxygen Delivery Method Room Air Intake Visit Reasons: EP ?Pneumonia Intake Note: pt is here today for pneumonia started tuesday Patient Tobacco Use Status: Current everyday Tobacco user Allergies heparin [HEPARIN] Allergy (Unknown, Verified 10/25/23 11:16) UNKNOWN REACTION(WAS AFTER CABG SURGERY) Penicillins [PENICILLINS] Allergy (Unknown, Verified 10/25/23 11:16) REACTION UNKNOWN Do you need a note to return to daycare/school/sports/work: No HPI HPI Comments History of Present Illness Details 68-year-old female presents today compla ining of 2 days of increasing shortness of breath. Has a past medical history cardiomyopathy, CABG, lung disease, PFSH Medical History Hyperglycemia Dysplastic nevus Hyperlipidemia Hematuria A-fib Colon cancer screening declined Papanicolaou smear declined Mammogram declined COPD (chronic obstructive pulmonary disease) Ischemic cardiomyopathy Depression Pacemaker Myocardial infarct Surgical History S/P ICD (internal cardiac defibrillator) procedure Hx of CABG Family History Father History of heart attack Mother No problems noted. Maternal Grandmother Colon cancer Social History Housing: House Alcohol intake: never Patient Tobacco Use Status: Current everyday Tobacco user Tobacco use type: Cigarette Cigarettes Per Day: 4 e-Cigarette/Vaping Use: Never Used Current occupational status: employed Cognitive needs: No Hearing needs: No Vision needs: Yes Review of Systems Const Reports lethargy Eyes Reports no additional complaints ENT Reports no additional complaints Card Reports no additional complaints, Reports dyspnea and Reports dyspnea on exertion Resp Reports cough, Reports dyspnea and Reports dyspnea on exertion GI Reports no additional complaints Physical Exam Vital Signs: Last Vital Signs Temp 97.1 F 10/25/23 11:08 Pulse 63 10/25/23 11:08 BP 118/76 10/25/23 11:08 Pulse Ox 97 10/25/23 11:08 Oxygen Delivery Method Room Air 10/25/23 11:08 BMI result Body Mass Index 23.8 Const General: in distress and ill appearing HEENT Head: Yes normal to inspection, Yes normocephalic and Yes atraumatic Ears: hearing grossly normal bilaterally General nose exam: Normal external nose present Face and sinus: Yes normal facial exam Eyes General: appearance normal, both eyes and all related structures Resp Effort & Inspection: able to speak in complete sentences Auscultation: rales on the right Cardio Rate: regular rate Rhythm: regular rhythm Results Reviewed Results Reviewed: X-ray done today reveals a pneumonia and a pleural effusion in the right lower lobe. CT was also recommended. This was reviewed with the patient Assessment & Plan Assessment & Plan (1) SOB (shortness of breath): Code(s): R06.02 - Shortness of breath Plan: After consultation with Dr. Peter it was recommended the patient go to the emergency room for IV antibiotics and also the CT scan. This was discussed with the patient (2) Pneumonia: Code(s): J18.9 - Pneumonia, unspecified organism Plan: see plan Plan see plan Orders: Orders XR chest 2V Today R06.02 - Shortness of breath Coding Level of Care Code Est Pt Level 4 (64102) Diagnoses SOB (shortness of breath) R06.02 Pneumonia J18.9
== END 2023-10-25 14:02 | disposition home or self-care (01) ==
PROVIDERS: PCP Internal Medicine; Visit Provider Physician Assistant Medical
DX: R06.02 Shortness of breath (principal); J18.9 Pneumonia, unspecified organism
CPT/HCPCS: 99214

== ENCOUNTER 2023-10-25 11:51 | Outpatient (REF) | payer MEDICARE, SELFPAY ==
--- NOTE | ~2023-10-25 | XR_ITS ---
EXAMINATION: XR CHEST CLINICAL INFORMATION: Shortness of breath COMPARISON: 06/23/2022 TECHNIQUE: 2 views of the chest were obtained. FINDINGS: Median sternotomy wires, surgical clips and pacer/AICD are unchanged. Underlying hyperinflation/emphysema and biapical pleural thickening again identified. Bilateral costophrenic angle blunting again noted. Interval development of right lateral hemithorax pleural-based opacity and multiple oval/smoothly bordered mid to lower right hemithorax opacities. There are also interval increased markings in the right middle lobe. Chronic pleural parenchymal scarring identified left posterior lower lung. XR/XR chest 2V IMPRESSION: Suspect right middle lobe pneumonia and loculated right pleural/fissural fluid collections. Chest CT recommended.
== END 2023-10-25 11:52 | disposition home or self-care (01) ==
LOC: HO.HMGCX 11:51
PROVIDERS: PCP Internal Medicine; Visit Provider Physician Assistant Medical
DX: R06.02 Shortness of breath (principal)
CPT/HCPCS: 71046

== ENCOUNTER 2023-11-24 08:44 | Outpatient (REF) | payer MEDICARE, SELFPAY ==
[2023-11-24 10:29] LABS: MANUAL DIFF FLAG NO
[2023-11-24 10:41] LABS: Estimated Average Glucose 143 mg/dL; Hemoglobin A1c % 6.6 % (<6.0)
[2023-11-24 10:52] LABS: Creatinine Urine 103.16 mg/dL; Microalbum/Creatinine Ratio Ur 115.3 ug/mg cr (<30)
[2023-11-24 10:55] LABS: Digoxin 0.7 ng/mL (0.8-2.0)
[2023-11-24 11:09] LABS: Alanine Aminotransferase 33 U/L (0-31); Albumin Level 3.5 g/dL (3.5-5.0); Alkaline Phosphatase 87 U/L (39-117); Anion Gap 15 (12-20); Aspartate Amino Transferase 25 U/L (5-31); Bilirubin Total 0.1 mg/dL (0.0-1.0); Blood Urea Nitrogen 7 mg/dL (9-16); Calcium 9.4 mg/dL (8.4-10.2); Carbon Dioxide 28 mmol/L (22-29); Chloride 103 mmol/L (96-108); Cholesterol 108 mg/dL (<200); Estimated Glomerular Filt Rate > 60; Glucose Fasting 107 mg/dL (60-99); HDL Cholesterol 27 mg/dL (>40); LDL Cholesterol Calculated 48 mg/dL (<100); Potassium 3.5 mmol/L (3.3-5.1); Sodium 142 mmol/L (135-145); Total Protein 6.8 g/dL (6.5-8.0); Triglycerides 168 mg/dL (<150)
[2023-11-24 11:33] LABS: Basophils Percent Auto 0.4 % (0-2); Eosinophils Absolute Auto 0.1 X10*3/uL (0.0-0.4); Eosinophils Percent Auto 1.1 % (0-4); Hematocrit 30.6 % (37.0-47.0); Hemoglobin 9.9 g/dl (12.0-16.0); Imm Gran Abs Auto 0.25 X10*3/uL (0.00-0.03); Imm Gran Pct Auto 4.5 % (0.0-0.4); Lymphocytes Absolute Auto 2.2 X10*3/uL (1.2-4.9); Lymphocytes Percent Auto 39.1 % (20-40); Mean Corpuscular HGB Conc 32.4 g/dl (31.0-35.0); Mean Corpuscular Hemoglobin 30.5 pg (27.0-33.0); Mean Corpuscular Volume 94.2 fL (80.0-98.0); Mean Platelet Volume 10.4 fL (9.4-12.3); Monocytes Absolute Auto 0.8 X10*3/uL (0.1-1.2); Neutrophils Absolute Auto 2.3 x10*3/uL (2.0-8.3); Neutrophils Percent Auto 40.9 % (45-73); Platelet Count 236 X10*3/uL (160-400); Red Blood Count 3.25 X10*6/uL (4.20-5.50); Red Cell Distribution Width 12.3 % (11.0-16.0); White Blood Count 5.6 X10*3/uL (4.8-10.8)
== END 2023-11-24 08:45 | disposition home or self-care (01) ==
LOC: HO.HMGCLDS 08:44
PROVIDERS: PCP Internal Medicine; Visit Provider Internal Medicine
DX: I25.5 Ischemic cardiomyopathy (principal); R73.9 Hyperglycemia, unspecified; E78.5 Hyperlipidemia, unspecified; J44.9 Chronic obstructive pulmonary disease, unspecified; I48.91 Unspecified atrial fibrillation
CPT/HCPCS: 36415; 80053; 80061; 80162; 82043; 82570; 83036; 85025

== ENCOUNTER 2023-12-01 09:51 | Outpatient (AMB) | payer MEDICARE, SELFPAY ==
[2023-12-01 09:54] VITALS: BP 104/66; PULSE 76; O2SAT 98; BMI 23.6
--- NOTE | 2023-12-01 09:54 | MHC.PC.OV ---
Vital Signs 12/01/23 09:54 Height 5 ft 5 in Weight 142 lb BMI 23.6 BP 104/66 Blood Pressure Location Rt brachial Position Sitting Pulse 76 Pulse Source Pulse Oximeter Pulse Oximetry (%) 98 Oxygen Delivery Method Room Air Intake Visit Reasons: 3 month follow up Intake Note: Pt is here today for 3 months follow up visit. Allergies heparin [HEPARIN] Allergy (Unknown, Verified 12/01/23 09:58) UNKNOWN REACTION(WAS AFTER CABG SURGERY) Penicillins [PENICILLINS] Allergy (Unknown, Verified 12/01/23 09:58) REACTION UNKNOWN Tobacco use date assessed: 12/01/23 Fall risk assessment: No Falls in past year Last assessed Fall Risk: 12/01/23 Dental Screening Dental Screen Date: 08/18/23 HPI 3 month follow up HPI Details Pt presents for f/u [facility] hospitalization for acute pneumonia and was diagnosed with metastatic small cell lung CA and started chemotherapy on November 04. Patient follows up with [facility] Oncology and will have 4 cycles of carboplatin and etoposide with atezolizumab. Patient has been tolerating chemotherapy well but reports decreased appetite. Cardiomyopathy is stable on current medications. she follows up with Cardiology and denies PND orthopnea palpitations. [facility] Medical History Hyperglycemia Dysplastic nevus Hyperlipidemia Hematuria A-fib Colon cancer screening declined Papanicolaou smear declined Mammogram declined COPD (chronic obstructive pulmonary disease) Ischemic cardiomyopathy Depression Pacemaker Myocardial infarct Surgical History S/P ICD (internal cardiac defibrillator) procedure Hx of CABG Family History Father History of heart attack Mother No problems noted. Maternal Grandmother Colon cancer Social History Housing: House Alcohol intake: never Patient Tobacco Use Status: Current everyday Tobacco user Tobacco use type: Cigarette Cigarettes Per Day: 4 e-Cigarette/Vaping Use: Never Used service: No Current occupational status: employed Cognitive needs: No Hearing needs: No Vision needs: Yes Questionnaire Thrive Questionnaire Date Thrive assessed: 03/15/23 KARLY-7 AMB Questionnaire KARLY-7 Date KARLY - 7 assessed: 03/15/23 Source: Developed by Drs. Yazan Ascencio, Kim Mcguire, Williams Alatorre and colleagues, with an educational doin from [employer]. Review of Systems Const All systems reviewed & are unremarkable except as noted in HPI and below Eyes Reports no additional complaints ENT Reports no additional complaints Card Reports no additional complaints Resp Reports no additional complaints GI Reports no additional complaints Physical exam (Primary Care) Vital Signs: Last Vital Signs Pulse 76 12/01/23 09:54 BP 104/66 12/01/23 09:54 Pulse Ox 98 12/01/23 09:54 Oxygen Delivery Method Room Air 12/01/23 09:54 BMI result Body Mass Index 23.6 Tobacco/Smoking Status: Tobacco use Status Tobacco use date assessed 12/01/23 12/01/23 10:01 Patient Tobacco Use Status Current everyday Tobacco 12/01/23 09:55 Tobacco use type Cigarette 12/01/23 09:55 e-Cigarette/Vaping Use Never Used 12/01/23 09:55 Thrive Assessment: Date of Thrive Assessment Date Thrive assessed 03/15/23 12/01/23 09:55 Const General: no acute distress HENMT Head: Yes normal to inspection Face and sinus: Yes normal facial exam Eyes General: appearance normal, both eyes and all related structures Neck Neck: Yes no lymphadenopathy and Yes supple Resp Effort & Inspection: normal respiratory effort Auscultation: crackles on the right and diminished lung sounds Cardio Rhythm: regular rhythm Heart sounds: S1 normal heart sound present and S2 normal heart sound present GI Inspection: Yes normal to inspection Palpation (GI): Soft to palpation Percussion: Yes normal to percussion Auscultation: normal bowel sounds Assessment and Plan Assessment & Plan (1) Lung cancer, primary, 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: Comment: Small cell, dxd 11/24, 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, mediastinum and abdominal adenopathy, follow-up with [facility] Oncology started on chemo 11/2023 Code(s): C34.90 - Malignant neoplasm of unspecified part of unspecified bronchus or lung Plan: Follow-up with [facility] Oncology (2) Ischemic cardiomyopathy: Comment: s/p CABG, ejection fraction 20-25%, Echo 03/25, f/u with [facility] , s/p ICD, , patient refused to take SGLT 2 inhibitor Code(s): I25.5 - Ischemic cardiomyopathy Plan: Continue current medications follow-up with the Cardiology (3) COPD (chronic obstructive pulmonary disease): Comment: severe PFT 2019, patient declined to use Trelegy Code(s): J44.9 - Chronic obstructive pulmonary disease, unspecified Plan: Continue inhalers and follow-up with pulmonology (4) A-fib: Code(s): I48.91 - Unspecified atrial fibrillation Plan: Continue current medications and follow-up with Cardiology Coding Level of Care Code Est Pt Level 4 (01611) Diagnoses Lung cancer, primary, 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 C34.90 Ischemic cardiomyopathy I25.5 COPD (chronic obstructive pulmonary disease) J44.9 A-fib I48.91
== END 2023-12-01 10:34 | disposition home or self-care (01) ==
PROVIDERS: PCP Internal Medicine; Visit Provider Internal Medicine
DX: J44.9 Chronic obstructive pulmonary disease, unspecified (principal); C34.90 Malignant neoplasm of unspecified part of unspecified bronchus or lung; I48.91 Unspecified atrial fibrillation; I25.5 Ischemic cardiomyopathy
CPT/HCPCS: 99214

== ENCOUNTER 2024-03-22 11:19 | Outpatient (AMB) | payer MEDICARE, SELFPAY ==
[2024-03-22 11:26] VITALS: BP 102/66; PULSE 69; O2SAT 97; BMI 24.0
--- NOTE | 2024-03-22 11:26 | MHC.PC.OV ---
Vital Signs 03/22/24 11:26 Height 5 ft 5 in Weight 144 lb BMI 24.0 BP 102/66 Blood Pressure Location Rt brachial Position Sitting Pulse 69 Pulse Source Pulse Oximeter Pulse Oximetry (%) 97 Oxygen Delivery Method Room Air Intake Visit Reasons: PE Intake Note: Pt is here today for PE. Allergies heparin [HEPARIN] Allergy (Unknown, Verified 03/22/24 11:29) UNKNOWN REACTION(WAS AFTER CABG SURGERY) Penicillins [PENICILLINS] Allergy (Unknown, Verified 03/22/24 11:29) REACTION UNKNOWN Medication List - Last Reconciled 03/22/24 by Annika Peter MD albuterol sulfate 90 mcg/actuation 2 puffs inhalation Q6H PRN albuterol sulfate 0.63 mg (3 mL) inhalation QID PRN citalopram 30 mg (1.5 x 20 mg) PO QAM digoxin 250 mcg PO BEDTIME furosemide 10 mg PO DAILY levothyroxine 75 mcg PO DAILY nebulizers (AeroEclipse II Nebulizer) As directed rosuvastatin 40 mg PO DAILY tiotropium bromide 2.5 mcg/actuation (Spiriva Respimat) 2 inhalations inhalation QAM triamcinolone acetonide 0.1% 1 appl topical DAILY Tobacco use date assessed: 03/22/24 Dental Screening Dental Screen Date: 08/18/23 HPI PE HPI Details Patient presents for a physical. She is under Oncology care for metastatic lung CA and will have surveillance CT scan next week. [facility] Medical History (Updated 03/22/24 @ 15:27 by Annika Peter MD) Hyperglycemia Dysplastic nevus Hyperlipidemia Hematuria A-fib Colon cancer screening declined Papanicolaou smear declined Mammogram declined COPD (chronic obstructive pulmonary disease) Ischemic cardiomyopathy Depression Pacemaker Myocardial infarct Surgical History S/P ICD (internal cardiac defibrillator) procedure Hx of CABG Family History Father History of heart attack Mother No problems noted. Maternal Grandmother Colon cancer Social History Housing: House Alcohol intake: never Patient Tobacco Use Status: Current everyday Tobacco user Tobacco use type: Cigarette Cigarettes Per Day: 4 e-Cigarette/Vaping Use: Never Used service: No Current occupational status: employed Cognitive needs: No Hearing needs: No Vision needs: Yes Questionnaire PHQ-9 Over the last 2 weeks, how often have you been bothered by any of the following problems? 1. Little interest or pleasure in doing things: not at all 2. Feeling down, depressed, or hopeless: not at all 3. Trouble falling or staying asleep, or sleeping too much: nearly every day 4. Feeling tired or having little energy: not at all 5. Poor appetite or overeating: not at all 6. Feeling bad about yourself - or that you are a failure or have let yourself or your family down: not at all 7. Trouble concentrating on things, such as reading the newspaper or watching television: not at all 8. Moving or speaking so slowly that other people could have noticed. Or the opposite - being so fidgety or restless that you have been moving around a lot more than usual: not at all 9. Thoughts that you would be better off or of hurting yourself in some way: not at all Total score: 3 Depression Screening Interpretation: Negative Depression Screening Done: Yes 62705 - PHQ-9 Billing: Yes Source: Developed by Drs. Yazan Ascencio, Kim Mcguire, Williams Alatorre and colleagues, with an educational dion from [employer]. Thrive Questionnaire Date Thrive assessed: 03/22/24 I am a: Patient What is your living situation today?: I have a steady place to live Within the past 12 months, did the food you bought not last and you didn't have the money to get more?: Never true Within the past 12 months, did you worry whether your food would run out before you got money to buy more?: Never true Do you have trouble paying for medicines?: No Do you have trouble getting transportation to medical appointments?: No Do you have trouble paying your heating and electricity bill?: No Do you have trouble taking care of your child, family member or friend?: No Do you have trouble with day-to-day activities such as bathing, preparing meals, shopping, managing finances, etc.?: No Are you interested in more education?: No Please select the resources that you would like help with: None Currently or been in a relationship where the following occur: No concerns reported THRIVE Score: 0 AUDIT C Alcohol Use Questionnaire (AUDIT-C) 1. How often do you have a drink containing alcohol?: Never Total Score: 0 KARLY-7 AMB Questionnaire KARLY-7 Date KARLY - 7 assessed: 03/22/24 Feeling nervous, anxious, or on edge: 0 = Not at all Not being able to stop or control worryin = Not at all Worrying too much about different things: 0 = Not at all Trouble relaxin = Not at all Being so restless that it is hard to sit still: 0 = Not at all Feeling afraid as if something awful might happen: 0 = Not at all Source: Developed by Drs. Yazan Ascencio, Kim Mcguire, Williams Alatorre and colleagues, with an educational dion from [employer]. KARLY-7 Assessment Billing KARLY-7 Assessment Tool: KARLY-7 Assessment 83753 Review of Systems Const All systems reviewed & are unremarkable except as noted in HPI and below Eyes Reports no additional complaints ENT Reports no additional complaints Card Reports no additional complaints Resp Reports no additional complaints GI Reports no additional complaints Reports no additional complaints Physical exam (Primary Care) Vital Signs: Last Vital Signs Pulse 69 03/22/24 11:26 BP 102/66 03/22/24 11:26 Pulse Ox 97 03/22/24 11:26 Oxygen Delivery Method Room Air 03/22/24 11:26 BMI result Body Mass Index 24.0 Tobacco/Smoking Status: Tobacco use Status Tobacco use date assessed 03/22/24 03/22/24 11:34 Patient Tobacco Use Status Current everyday Tobacco 03/22/24 11:27 Tobacco use type Cigarette 03/22/24 11:27 e-Cigarette/Vaping Use Never Used 03/22/24 11:27 PHQ-9: PHQ-9 Score PHQ-9: Total score 3 03/22/24 11:34 Depression Screening Interpretation: Negative Thrive Assessment: Date of Thrive Assessment Date Thrive assessed 03/22/24 03/22/24 11:34 Currently or been in a relationship where the following occur: No concerns reported Const General: no acute distress HENMT Head: Yes normal to inspection Face and sinus: Yes normal facial exam Eyes General: appearance normal, both eyes and all related structures Neck Neck: Yes no lymphadenopathy and Yes supple Resp Effort & Inspection: normal respiratory effort Auscultation: clear to auscultation bilaterally Cardio Rhythm: regular rhythm Heart sounds: S1 normal heart sound present and S2 normal heart sound present GI Inspection: Yes normal to inspection Palpation (GI): Soft to palpation Percussion: Yes normal to percussion Auscultation: normal bowel sounds Assessment and Plan Assessment & Plan (1) Lung cancer, primary, 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: Comment: Small cell, 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, 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, mediastinum and abdominal adenopathy, follow-up with [facility] Oncology started on chemo 11/2023 Code(s): C34.90 - Malignant neoplasm of unspecified part of unspecified bronchus or lung Plan: f/u with oncology (2) Annual physical exam: Code(s): Z00.00 - Encounter for general adult medical examination without abnormal findings Plan: Well-balanced diet regular physical activity discussed with the patient she is up-to-date with the mammogram colonoscopy and has blood work done by Oncology (3) Hyperlipidemia: Code(s): E78.5 - Hyperlipidemia, unspecified Plan: Continue crestor (4) A-fib: Comment: Follow-up with cardiology Code(s): I48.91 - Unspecified atrial fibrillation Medications: Refilled triamcinolone acetonide 0.1% 1 appl topical DAILY 30 grams 0RF Coding Level of Care Code Est Pt Prev Care >65y(99273) Diagnoses Lung cancer, primary, 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 C34.90 Annual physical exam Z00.00 Hyperlipidemia E78.5 A-fib I48.91 Additional Codes KARLY-7 Assessment Billing - KARLY-7 Assessment Tool: KARLY-7 Assessment [id number] ([id number])
== END 2024-03-22 12:23 | disposition home or self-care (01) ==
PROVIDERS: PCP Internal Medicine; Visit Provider Internal Medicine
DX: C34.90 Malignant neoplasm of unspecified part of unspecified bronchus or lung (principal); Z00.00 Encounter for general adult medical examination without abnormal findings; E78.5 Hyperlipidemia, unspecified; I48.91 Unspecified atrial fibrillation

== ENCOUNTER → 2024-03-22 11:19 | Outpatient (BNVA) | payer MEDICARE, SELFPAY | PROVIDERS: PCP Internal Medicine; Visit Provider Internal Medicine | DX: Z00.00 Encounter for general adult medical examination without abnormal findings (principal); C34.90 Malignant neoplasm of unspecified part of unspecified bronchus or lung; E78.5 Hyperlipidemia, unspecified; I48.91 Unspecified atrial fibrillation | CPT/HCPCS: 96127 ==

== ENCOUNTER 2024-06-18 14:18 | Outpatient (AMB) | payer MEDICARE, SELFPAY ==
[2024-06-18 14:19] VITALS: BP 132/80; PULSE 77; TEMP 36.3; O2SAT 97; BMI 23.5
--- NOTE | 2024-06-18 14:19 | MHC.OFFWIV ---
Intake Vital Signs 06/18/24 14:19 Height 5 ft 5 in Weight 141 lb 8 oz BMI 23.5 BP 132/80 Blood Pressure Location Lt brachial Position Sitting Pulse 77 Pulse Source Pulse Oximeter Temp 97.4 F Temp Source Oral Pulse Oximetry (%) 97 Oxygen Delivery Method Room Air Intake Visit Reasons: EP constant dizziness Intake Note: Pt presents to the office today for c/o dizziness x3 weeks. Patient Tobacco Use Status: Current everyday Tobacco user Allergies heparin [HEPARIN] Allergy (Unknown, Verified 06/18/24 14:23) UNKNOWN REACTION(WAS AFTER CABG SURGERY) Penicillins [PENICILLINS] Allergy (Unknown, Verified 06/18/24 14:23) REACTION UNKNOWN HPI EP constant dizziness HPI Details This note is constructed using voice recognition software. While every effort has been made to ensure accuracy, camera operator errors may have been included. The patient is a 69 year old female who presents to the clinic today with dizziness with head motion for the past 3 weeks. She reports symptoms are worse when she rolls over in bed. She denies any trauma to the head, any use of blood thinners, any new medications. She was started on levothyroxine approximately 2 months ago. She has been in contact with both her production repairer and her oncologist who have not identified a source for her symptoms. She denies any confusion, balance issues. She does avoid driving when she is actively dizzy. [facility] Medical History (Updated 03/22/24 @ 15:27 by Annika Peter MD) Hyperglycemia Dysplastic nevus Hyperlipidemia Hematuria A-fib Colon cancer screening declined Papanicolaou smear declined Mammogram declined COPD (chronic obstructive pulmonary disease) Ischemic cardiomyopathy Depression Pacemaker Myocardial infarct Surgical History S/P ICD (internal cardiac defibrillator) procedure Hx of CABG Family History Father History of heart attack Mother No problems noted. Maternal Grandmother Colon cancer Social History Housing: House Alcohol intake: never Patient Tobacco Use Status: Current everyday Tobacco user Tobacco use type: Cigarette Cigarettes Per Day: 4 e-Cigarette/Vaping Use: Never Used service: No Current occupational status: employed Cognitive needs: No Hearing needs: No Vision needs: Yes Physical Exam Vital Signs: Last Vital Signs Temp 97.4 F 06/18/24 14:19 Pulse 77 06/18/24 14:19 BP 132/80 06/18/24 14:19 Pulse Ox 97 06/18/24 14:19 Oxygen Delivery Method Room Air 06/18/24 14:19 BMI result Body Mass Index 23.5 Const General: cooperative, healthy appearing, comfortable, no acute distress and well developed Orientation/consciousness: patient oriented x3 Limitations: no limitations HEENT Head: Yes normal to inspection Ears: hearing grossly normal bilaterally General nose exam: Normal external nose present Face and sinus: Yes normal facial exam Eyes Other: EOMI. Horizontal nystagmus present. General: appearance normal, both eyes and all related structures Neck Neck: Yes normal visual inspection and Yes full ROM Resp Effort & Inspection: normal respiratory effort and able to speak in complete sentences Auscultation: clear to auscultation bilaterally Cardio Jugular venous distension: no JVD Palpation: normal PMI Rate: regular rate Rhythm: regular rhythm Heart sounds: S1 normal heart sound present and S2 normal heart sound present Skin General skin exam: no rashes or lesions noted Neuro General: patient oriented x3 Extrem General: Yes normal to inspection Assessment & Plan Assessment & Plan (1) BPPV (benign paroxysmal positional vertigo): Code(s): H81.10 - Benign paroxysmal vertigo, unspecified ear Qualifiers: Laterality: unspecified laterality Qualified Code(s): H81.10 - Benign paroxysmal vertigo, unspecified ear Plan: Prescription for meclizine provided for symptomatic management. Advised avoidance of driving while dizzy. Advised follow up with pcp as needed with worsening or failure to improve. Plan See above for full details and plan. Medications: New meclizine 1 to 2 orally 3 times a day PRN; 20 tabs 0RF dizziness Coding Level of Care Code Est Pt Level 3 (16911) Diagnoses Benign paroxysmal positional vertigo, unspecified laterality H81.10 Laterality: unspecified laterality
== END 2024-06-18 14:52 | disposition home or self-care (01) ==
PROVIDERS: PCP Internal Medicine; Visit Provider Registered Nurse
DX: H81.10 Benign paroxysmal vertigo, unspecified ear (principal)

== ENCOUNTER → 2024-06-18 14:18 | Outpatient (BNVA) | payer MEDICARE, SELFPAY | PROVIDERS: PCP Internal Medicine; Visit Provider Registered Nurse | DX: H81.10 Benign paroxysmal vertigo, unspecified ear (principal) | CPT/HCPCS: 99212 ==